=== PATIENT | male | born 1985 ===

== ENCOUNTER 2016-11-26 11:14 | Emergency (ER) | payer BC, MEDICAID ==
[2016-11-26 11:23] VITALS: BMI 26.4
[2016-11-26 12:58] LABS: BASO % 0.4 % (0.0-2.0); EOS % 0.4 % (0.0-4.0); HEMATOCRIT 42.7 % (35.0-51.0); LYMPH # 1.9 K/uL (1.0-4.3); LYMPH % 17.5 % (20.0-40.0); MEAN CELL VOLUME 81.9 fl (80.0-94.0); MEAN CORPUSCULAR HEMOGLOBIN 28.5 pg (27.0-31.0); MEAN CORPUSCULAR HGB CONC 34.8 g/dL (33.0-37.0); MONO # 0.8 K/uL (0.0-0.8); MONO % 7.2 % (0.0-10.0); NEUT # 7.9 K/uL (1.8-7.0); NEUT % 74.5 % (50.0-75.0); NRBC % 0.1 % (0.0-0.0); RED CELL DISTRIBUTION WIDTH 13.5 % (11.5-14.5); WHITE BLOOD COUNT 10.6 K/uL (4.8-10.8)
--- NOTE | 2016-11-26 13:05 | ED PDOC ---
HPI: Headache Time Seen by Provider: 11/26/16 11:39 Chief Complaint (Nursing): Headache Chief Complaint (Provider): Headache History Per: Patient History/Exam Limitations: no limitations Onset/Duration Of Symptoms: Days Current Symptoms Are (Timing): Still Present Severity: Moderate Quality: "Pain" Preceeding Symptoms: None Additional Complaint(s): Patient is a 31 year old male with a history of traumatic brain injury, presents to ED for evaluation of a headache for 3 days. Patient reports headache is right sided, frontal and worsened this morning. Notes similar headache in the past secondary to his skull fracture many years ago. Patient with an implanted neurotransmitter as well for seizures, following with neurologist and PMD. Denies vision changes, fever, syncope, dizziness, nausea or vomiting. PMD: DR Funes Past Medical History Reviewed: Historical Data, Nursing Documentation, Vital Signs - Medical History PMH: Seizures Denies: Chronic Kidney Disease Other PMH: Post traumatic brain injury - Surgical History Other surgeries: implanted neurosimulator - Family History Family History: States: Unknown Family Hx - Home Medications Home Medications: Ambulatory Orders Medication Instructions Recorded Amoxicillin/Clavulanate [Augmentin 1 tab PO BID #14 tab 11/26/16 875 MG-125 MG] Ibuprofen [Motrin] 600 mg PO Q8 #30 tab 11/26/16 - Allergies Allergies/Adverse Reactions: Allergies Allergy/AdvReac Type Severity Reaction Status Date / Time No Known Allergies Allergy Verified 08/06/16 14:47 Review of Systems ROS Statement: Except As Marked, All Systems Reviewed And Found Negative Constitutional: Negative for: Fever Eyes: Negative for: Vision Change Cardiovascular: Negative for: Chest Pain Respiratory: Negative for: Shortness of Breath Gastrointestinal: Negative for: Nausea, Vomiting Musculoskeletal: Negative for: Neck Pain Neurological: Positive for: Headache. Negative for: Weakness, Numbness, Dizziness Physical Exam - Reviewed Nursing Documentation Reviewed: Yes Vital Signs Reviewed: Yes - Physical Exam Appears: Positive for: Non-toxic, No Acute Distress Skin: Positive for: Normal Color, Warm Eye Exam: Positive for: Normal appearance Neck: Positive for: Normal, Painless ROM Cardiovascular/Chest: Positive for: Regular Rate, Rhythm, Other (Implant left chest). Negative for: Murmur Respiratory: Positive for: Normal Breath Sounds. Negative for: Respiratory Distress Extremity: Positive for: Normal ROM Neurologic/Psych: Positive for: Alert, automotive parts person II-XII (grossly intact), Oriented. Negative for: Motor/Sensory Deficits - Laboratory Results Result Diagrams: 11/26/16 12:30 11/26/16 12:30 - Progress Re-evaluation Time: 15:03 Condition: Re-examined, Improved Medical Decision Making Medical Decision Making: Time: 1210 Initial impression: Headache r/o brain mass, migraine, post traumatic brain injury Initial plan: -- CT-head -- BMP -- CBC -- Toradol and Reglan Time: 1420 CT-head results reviewed PROCEDURE: CT HEAD WITHOUT CONTRAST. HISTORY:headache COMPARISON: None available. TECHNIQUE: Axial computed tomography images were obtained through the head/brain without intravenous contrast. Radiation dose: Total exam DLP = mGy-cm. This CT exam was performed using one or more of the following dose reduction techniques: Automated exposure control, adjustment of the mA and/or kV according to patient size, and/or use of iterative reconstruction technique. FINDINGS: HEMORRHAGE: No intracranial hemorrhage. BRAIN: No mass effect or edema. No atrophy or chronic microvascular ischemic changes VENTRICLES: Unremarkable. No hydrocephalus. CALVARIUM: Unremarkable. PARANASAL SINUSES: There is a mucosal thickening and air-fluid level at the right frontal sinus suggestive of sinusitis. Moderate mucosal thickening in the ethmoid sinuses is also noted. MASTOID AIR CELLS: Unremarkable as visualized. No inflammatory changes. OTHER FINDINGS: None. IMPRESSION: No evidence of acute intracranial hemorrhage intracranial collection mass effect or midline shift. Findings suggestive of right frontal and the ethmoidal sinusitis Scribe Attestation: Documented by Meredith Garcia acting as a scribe for Sergey Edmonds MD. Scribe Attestation: All medical record entries made by the Scribe were at my direction and personally dictated by me. I have reviewed the chart and agree that the record accurately reflects my personal performance of the history, physical exam, medical decision making, and the department course for this patient. I have also personally directed, reviewed, and agree with the discharge instructions and disposition. Disposition - Clinical Impression Clinical Impression: Sinusitis, Headache - Patient ED Disposition Is Patient to be Admitted: No Doctor Will See Patient In The: Office Counseled Patient/Family Regarding: Studies Performed, Diagnosis - Disposition Referrals: Your, PCP [Other] Disposition: Routine/Home Disposition Time: 15:04 Condition: GOOD Additional Instructions: Follow up with your PCP in 2-3 days. Take medications as instructed. Prescriptions: Amoxicillin/Clavulanate [Augmentin 875 MG-125 MG] 1 tab PO BID #14 tab Ibuprofen [Motrin] 600 mg PO Q8 #30 tab Instructions: Sinusitis (ED)
[2016-11-26 13:08] LABS: BLOOD UREA NITROGEN 9 mg/dl (9-20); CALCIUM 9.8 mg/dL (8.4-10.2); CARBON DIOXIDE 27 mmol/L (22-30); CHLORIDE 99 mmol/L (98-107); GFR AFRICAN-AMERICAN > 60; GLUCOSE,RANDOM 87 mg/dL (75-110); POTASSIUM 4.8 MMOL/L (3.6-5.0); SODIUM 138 mmol/l (132-148)
--- NOTE | 2016-11-26 13:20 | CT ---
PROCEDURE: CT HEAD WITHOUT CONTRAST. HISTORY: headache COMPARISON: None available. TECHNIQUE: Axial computed tomography images were obtained through the head/brain without intravenous contrast. Radiation dose: Total exam DLP = mGy-cm. This CT exam was performed using one or more of the following dose reduction techniques: Automated exposure control, adjustment of the mA and/or kV according to patient size, and/or use of iterative reconstruction technique. FINDINGS: HEMORRHAGE: No intracranial hemorrhage. BRAIN: No mass effect or edema. No atrophy or chronic microvascular ischemic changes. VENTRICLES: Unremarkable. No hydrocephalus. CALVARIUM: Unremarkable. PARANASAL SINUSES: There is a mucosal thickening and air-fluid level at the right frontal sinus suggestive of sinusitis. Moderate mucosal thickening in the ethmoid sinuses is also noted. MASTOID AIR CELLS: Unremarkable as visualized. No inflammatory changes. OTHER FINDINGS: None. IMPRESSION: No evidence of acute intracranial hemorrhage intracranial collection mass effect or midline shift. Findings suggestive of right frontal and the ethmoidal sinusitis
[2016-11-26 13:45] VITALS: BP 145/81; PULSE 92; RESP 16; TEMP 98.2; O2SAT 98
== END 2016-11-26 15:41 | disposition home or self-care (01) ==
LOC: H.ER 11:14
DX: J32.9 Chronic sinusitis, unspecified (principal); R51 Headache
CPT/HCPCS: 70450; 80048; 85025; 96374; 96375; 99285; J1885; J2765